=== PATIENT | female | born 1945 | race Caucasian/White ===

== ENCOUNTER → 2019-05-09 | Outpatient (CLI) | payer MEDICARE, OTHER ==
--- NOTE | 2019-05-09 20:39 | Diagnostic Imaging Report ---
INDICATION: Knee pain. Three views were obtained. FINDINGS: The alignment is normal. There are mild degenerative changes. There is no fracture or dislocation. Soft tissues are unremarkable. IMPRESSION: Mild degenerative changes, otherwise unremarkable. Dictated by: Dictated on workstation # [id number]
== END ==
LOC: RAD FS 15:25
PROVIDERS: ATTEND Nurse Practitioner
DX: M17.11 Unilateral primary osteoarthritis, right knee (principal)
CPT/HCPCS: 73562

== ENCOUNTER → 2020-04-12 | Outpatient (CLI) | payer MEDICARE, OTHER ==
--- NOTE | 2020-04-12 14:48 | Diagnostic Imaging Report ---
INDICATION: Chronic left knee pain. COMPARISON: None. FINDINGS: Three views of the left knee joint demonstrate no acute fracture or dislocation. No focal osseous lesions are seen. No significant joint effusion is seen. The surrounding soft tissue structures are unremarkable. There are no radiopaque foreign bodies. IMPRESSION: 1. No acute fractures or dislocations of the left knee joint. Dictated by: Dictated on workstation # [id number]
== END ==
LOC: RAD FS 14:24
PROVIDERS: ATTEND Nurse Practitioner
DX: G89.29 Other chronic pain (principal); M25.562 Pain in left knee
CPT/HCPCS: 73562

== ENCOUNTER 2020-11-30 11:39 | Emergency (ER) | payer MEDICARE, OTHER ==
[2020-11-30 11:44] VITALS: BP 192/93
--- NOTE | 2020-11-30 11:50 | ED General ---
General Chief Complaint: Cardiac/General Problems Stated Complaint: HIGH BP (171/115) Source of Information: Patient History of Present Illness Date Seen by Provider: Nov 30, 2020 Time Seen by Provider: 11:49 Initial Comments 75-year-old female presents from the eye doctor's office where she had routine exam today. Noted by the eye doctor that she was having some abnormalities in her retinal exam and she was concerned about her blood pressure and advised her to see her primary doctor today. Her primary doctor was not available for 4 days, she called the urgent care and they advised her to come to the emergency room. Patient presents, "feeling fine" without any complaints. She denies any visual change, headaches, numbness and tingling or weakness. She denies any chest pain, shortness of air or swelling of her extremities. She does have a history of hypertension and takes diltiazem 180 and lisinopril 40 mg daily, last taken before she went to bed last night. She does typically take them at night for no apparent reason. She does admit to a history of "whitecoat hypertension", she says she is always high at the doctor's office and then normal at home. This is not a new phenomenon for her. Allergies and Home Medications Allergies Coded Allergies: No Known Drug Allergies (Unverified , 11/30/20) Patient Home Medication List Home Medication List Reviewed: Yes Review of Systems Review of Systems Constitutional: No chills, No dizziness, No fever, No malaise, No weakness EENTM: no symptoms reported; No ear pain, No blurred vision, No double vision, No eye pain, No tearing, No vision loss Respiratory: No cough, No short of breath Cardiovascular: No chest pain, No edema Gastrointestinal: No abdominal pain, No nausea, No vomiting Psychiatric/Neurological: Denies Headache, Denies Numbness, Denies Paresthesia, Denies Weakness Past Inndaze-Kwqxam-Sfucrh Hx Past Med/Social Hx: Reviewed Nursing Past Med/Soc Hx Past Medical History Hypertension Physical Exam Vital Signs Vital Signs - First Documented 11/30/20 11:44 Temp 36.2 Pulse 95 Resp 16 B/P (MAP) 192/93 (126) Pulse Ox 97 Capillary Refill : Height, Weight, BMI Height: '" Weight: lbs. oz. kg; BMI Method: General Appearance: No Apparent Distress, WD/WN HEENT: PERRL/EOMI, Normal ENT Inspection Neck: Non Tender, Supple Respiratory: Chest Non Tender, Lungs Clear Cardiovascular: Regular Rate, Rhythm, No Edema, No JVD Progress/Results/Core Measures Suspected Sepsis SIRS Temperature: Pulse: Respiratory Rate: Blood Pressure / Mean: Results/Orders Vital Signs/I&O 11/30/20 11/30/20 11:44 12:14 Temp 36.2 36.2 Pulse 95 85 Resp 16 16 B/P (MAP) 192/93 (126) 176/86 (116) Pulse Ox 97 97 Capillary Refill : Departure Impression Primary Impression: Hypertension Qualified Codes: I10 - Essential (primary) hypertension Disposition: HOME, SELF-CARE Condition: Stable Departure-Patient Inst. Decision time for Depature: 12:04 Referrals: JESSY GALINDO MD (PCP/Family) Primary Care Physician Add. Discharge Instructions: take one of your lisinopril tablets (40mg) when you get home today, then start taking your blood pressure medication every morning. check your blood pressure at home for the next 2 weeks twice daily (once in the morning before you take your medication and once at night before going to bed). Record your measurements with the date and time of day and take them to see your doctor for a follow up appointment in 1 week. Start taking 60mg of your Lisinopril starting tomorrow morning (1 and 1/2 tablet of your regular dose) and continue this until you see your doctor for follow-up All discharge instructions reviewed with patient and/or family. Voiced understanding. CELSO DHILLON DO Nov 30, 2020 11:50
== END 2020-11-30 12:14 | disposition home or self-care (01) ==
LOC: EDUNIT# 11:39 → ER FS 11:41
DX: I10 Essential (primary) hypertension (principal)
CPT/HCPCS: 99283